=== PATIENT | male | born 1990 | race African-American/Black ===

== ENCOUNTER 2021-06-03 14:43 | Outpatient (REF) | payer OTHER, SELFPAY ==
[2021-06-04 04:45] LABS: HIV AB/AG Nonreactive (Nonreactive); HIV Num 1 0.04 S/CO (0.00-0.99)
== END 2021-06-03 14:44 | disposition home or self-care (01) ==
LOC: HO.HMGCLDS 14:43
PROVIDERS: PCP Physician Assistant; Visit Provider Physician Assistant
DX: Z11.4 Encounter for screening for human immunodeficiency virus [HIV] (principal)
CPT/HCPCS: 36415; 87389

== ENCOUNTER 2022-11-09 | Outpatient (REF) | payer OTHER, SELFPAY | END 2022-11-09 00:01 | LOC: HO.HOSX | PROVIDERS: Visit Provider Physician Assistant | DX: S86.892A Other injury of other muscle(s) and tendon(s) at lower leg level, left leg, initial encounter (principal); S86.891A Other injury of other muscle(s) and tendon(s) at lower leg level, right leg, initial encounter | CPT/HCPCS: 73590; 99202 ==

== ENCOUNTER 2022-11-26 16:00 | Outpatient (RCR) | payer OTHER, SELFPAY ==
--- NOTE | 2022-10-26 15:42 | MHC.PT.EP ---
[facility] [place] [facility] [place] [facility] [place] [facility] [address] Rod Centeno [address] [phone] F: [phone] F: [phone] F: [phone] F: [phone] Physical Therapy Plan of Care Date of Evaluation: Date of Surgery: n/a Diagnosis: B leg pain Assessment: Patient is a 32 year old male presenting to PT with complaints of pain in B lower legs. Pt reports onset of pain began 5 years ago due to fitness testing. He presents today with impairments in pain, gastroc tightness, hip strength, ankle DF ROM. 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 Pt expresses care home goal of reducing pain, and is motivated to work towards this in PT. Clinical presentation today is most consistent with signs and sx associated with B anterior sow pain with possible contribution from soft tissue restrictions and pt will benefit from skilled PT to address the following problems and impairments noted upon evaluation: pain, gastroc tightness, hip strength, ankle DF ROM. These problems limit the patient with the following functional activities: running, jumping. The prescribed treatment plan of care is medically necessary. Co-morbidities of none were identified and taken into considerations of plan of care. Pt was educated on HEP, role of PT, prognosis, POC. Frequency and Duration: The patient will be seen 2 x week x 4 weeks Short Term Goals: Pt will demonstrate improved gastroc muscle length for improved DF ROM by 5 degrees in 2 weeks. Pt will demonstrate improved MMT strength by 1/3 grade in 2 weeks for improved lumbopelvic stability. Shelter Goals: Pt will demonstrate DF ROM to neutral in 4 weeks for improved foot clearance with gait activities. Pt will demonstrate independence in home program for care home management of sx in 4 weeks. Treatment Plan: Modalities to reduce pain, spasms and effusion. Manual therapy to restore motion and function. Therapeutic exercise to improve strength and flexibility. Neuromuscular re-education for posture and balance. Therapeutic activities to return to functional activities of daily living. Electronically signed by: Alissa Sawyer, PT, DPT, ATC Please sign and return to therapist. Thank you for your referral.
--- NOTE | 2022-11-26 16:58 | MHC.PT.DC ---
[facility] [place] Office [place] [facility] [place] Office [address] Rod Centeno [address] [phone] F: [phone] F: [phone] F: [phone] F: [phone] Physical Therapy Discharge Report Diagnosis: B leg pain Date of Surgery: n/a Date of Evaluation: 10/26/22 Date of Discharge: 11/26/22 Treatments to Date: 9 Cancellations to Date: 0 No Shows to Date: 0 Discharge Status: Improved Function Independent with HEP Discharge Summary: 11/26/2022: Pt is no longer feeling pain. He is still limited in soft tissue restrictions from his gastrocs but this is improved. Discussed with pt that this pain is a long standing issue so it will take diligence with continuing with his HEP usp to really begin to feel significant changes/improvements and he is understanding of this. Advised pt if after a few months of continuing his HEP he continues to have pain then to return to his doctor. At this point max benefits of PT have been provided and skilled PT is no longer indicated at this time. Pt is in agreement with d/c at this time. Electronically signed by: Alissa Sawyer, PT, DPT, ATC Please sign and return to therapist. Thank you for your referral.
== END 2022-11-26 17:55 | disposition home or self-care (01) ==
LOC: HO.PTCHIC 16:00
PROVIDERS: PCP Physician Assistant; Visit Provider Physician Assistant
DX: S86.891A Other injury of other muscle(s) and tendon(s) at lower leg level, right leg, initial encounter (principal); S86.892A Other injury of other muscle(s) and tendon(s) at lower leg level, left leg, initial encounter
CPT/HCPCS: 97110; 97112; 97161; 97530

== ENCOUNTER 2022-11-27 13:35 | Outpatient (REF) | payer OTHER, SELFPAY ==
[2022-11-27 16:33] LABS: Hematocrit 44.3 % (42.0-52.0); Hemoglobin 14.4 g/dl (14.0-18.0); Mean Corpuscular HGB Conc 32.5 g/dl (31.0-36.0); Mean Corpuscular Volume 83.1 fL (80.0-98.0); Mean Platelet Volume 11.1 fL (9.4-12.4); Platelet Count 272 X10*3/uL (160-400); Red Blood Count 5.33 X10*6/uL (4.60-5.80); Red Cell Distribution Width 13.9 % (11.0-16.0); White Blood Count 6.5 X10*3/uL (4.8-10.8)
[2022-11-27 16:48] LABS: Alanine Aminotransferase 82 U/L (0-40); Albumin Level 4.6 g/dL (3.5-5.0); Alkaline Phosphatase 85 U/L (39-117); Anion Gap 14 (12-20); Aspartate Amino Transferase 50 U/L (5-37); Bilirubin Total 0.6 mg/dL (0.0-1.0); Blood Urea Nitrogen 16 mg/dL (9-16); Calcium 9.8 mg/dL (8.4-10.2); Carbon Dioxide 27 mmol/L (22-29); Chloride 103 mmol/L (96-108); Cholesterol 324 mg/dL; Estimated Glomerular Filt Rate > 60; Glucose Fasting 103 mg/dL (60-99); HDL Cholesterol 47 mg/dL; LDL Cholesterol Calculated 225 mg/dl; Potassium 4.4 mmol/L (3.3-5.1); Sodium 140 mmol/L (135-145); Total Protein 7.8 g/dL (6.5-8.0); Triglycerides 261 mg/dL
[2022-11-27 17:04] LABS: TSH reflex Free T4 1.95 uIU/mL (0.32-4.0)
[2022-11-30 09:26] LABS: HIV AB/AG Nonreactive (Nonreactive); HIV Num 1 0.08 S/CO (0.00-0.99)
== END 2022-11-27 13:36 | disposition home or self-care (01) ==
LOC: HO.HMGCLDS 13:35
PROVIDERS: PCP Physician Assistant; Visit Provider Physician Assistant
DX: Z13.220 Encounter for screening for lipoid disorders (principal); Z13.29 Encounter for screening for other suspected endocrine disorder; Z11.4 Encounter for screening for human immunodeficiency virus [HIV]
CPT/HCPCS: 36415; 80053; 80061; 84443; 85027; 87389

== ENCOUNTER 2023-03-29 13:47 | Outpatient (REF) | payer OTHER, SELFPAY ==
[2023-03-29 16:47] LABS: Alanine Aminotransferase 56 U/L (0-40); Albumin Level 4.3 g/dL (3.5-5.0); Alkaline Phosphatase 70 U/L (39-117); Aspartate Amino Transferase 43 U/L (5-37); Bilirubin Direct 0.1 mg/dL (0.0-0.5); Bilirubin Total 0.5 mg/dL (0.0-1.0); Cholesterol 333 mg/dL; HDL Cholesterol 43 mg/dL; LDL Cholesterol Calculated 247 mg/dl; Total Protein 7.3 g/dL (6.5-8.0); Triglycerides 216 mg/dL
== END 2023-03-29 13:48 | disposition home or self-care (01) ==
LOC: HO.HMGCLDS 13:47
PROVIDERS: PCP Physician Assistant; Visit Provider Physician Assistant
DX: R79.89 Other specified abnormal findings of blood chemistry (principal); E78.2 Mixed hyperlipidemia
CPT/HCPCS: 36415; 80061; 80076

== ENCOUNTER 2023-04-07 10:01 | Outpatient (REF) | payer OTHER, SELFPAY ==
--- NOTE | ~2023-04-07 | US_ITS ---
EXAMINATION: US ABDOMEN LIMITED CLINICAL INFORMATION: Elevated LFTs. COMPARISON: None available. TECHNIQUE: Real-time imaging of the right upper quadrant abdominal viscera. FINDINGS: PANCREAS: Normal. LIVER: The liver is normal in size. The liver contour is normal. There is diffuse increased liver parenchymal echogenicity. No focal hepatic lesion. There is no intrahepatic biliary duct dilatation seen. GALLBLADDER: Normal. The gallbladder is physiologically distended without evidence of stones, sludge, polyps, wall thickening or pericholecystic fluid. COMMON BILE DUCT: Normal in caliber measuring 0.5 cm in diameter. RIGHT KIDNEY: Normal. No hydronephrosis. No renal calculi or focal parenchymal lesions. The kidney measures 11.5 cm in maximum dimension. FREE FLUID: None. US/US abdomen limited IMPRESSION: There is generalized increase in hepatic echotexture, consistent with fatty infiltration or hepatocellular disease. Please correlate clinically. No focal hepatic mass or intrahepatic biliary dilatation is seen.
== END 2023-04-07 10:02 | disposition home or self-care (01) ==
LOC: HO.HMGCX 10:01
PROVIDERS: PCP Physician Assistant; Visit Provider Physician Assistant
DX: R79.89 Other specified abnormal findings of blood chemistry (principal)
CPT/HCPCS: 76705

== ENCOUNTER 2023-06-25 14:04 | Outpatient (AMB) | payer OTHER, SELFPAY ==
[2023-06-25 14:08] VITALS: BP 136/89; PULSE 59; BMI 29.3
--- NOTE | 2023-06-25 14:08 | MHC.OFFVIS ---
Intake Vital Signs 06/25/23 14:08 Height 5 ft 9 in Weight 198 lb 6.656 oz BMI 29.3 BP 136/89 Blood Pressure Location Rt brachial Position Sitting Pulse 59 Intake Visit Reasons: elevated LFTs Intake Note: Patient presents to in office visit today as a new patient for elevated LFTs. CC: Denies having any GI symptoms today. Allergies No Known Allergies Allergy (Verified 06/25/23 14:12) HPI elevated LFTs HPI Details 33-year-old male here for initial evaluation of transaminitis. He is referred by Dallas Ibarra of [facility] primary care. PMX Obesity Major depressive disorder Transaminitis Allergic rhinitis High cholesterol Pes planus * SURGICAL HISTORY [place] teeth removal. * ALLERGIES: NKDA * Circular LABS: Laboratory Tests 11/27/22 11/27/22 11/27/22 13:41 13:41 13:41 WBC 6.5 Hgb 14.4 Hct 44.3 Plt Count 272 Estimated GFR > 60 Total Bilirubin AST ALT Alkaline Phosphata se TSH 1.95 HIV 1&2 Ab/P24 Ag 4thGn Nonreactive 03/29/23 14:03 WBC Hgb Hct Plt Count Estimated GFR Total Bilirubin 0.5 AST 43 H ALT 56 H Alkaline Phosphata se 70 TSH HIV 1&2 Ab/P24 Ag 4thGn US ABD 04/12/23 FINDINGS: PANCREAS: Normal. LIVER: The liver is normal in size. The liver contour is normal. There is diffuse increased liver parenchymal echogenicity. No focal hepatic lesion. There is no intrahepatic biliary duct dilatation seen. GALLBLADDER: Normal. The gallbladder is physiologically distended without evidence of stones, sludge, polyps, wall thickening or pericholecystic fluid. COMMON BILE DUCT: Normal in caliber measuring 0.5 cm in diameter. RIGHT KIDNEY: Normal. No hydronephrosis. No renal calculi or focal parenchymal lesions. The kidney measures 11.5 cm in maximum dimension. FREE FLUID: None. US/US abdomen limited IMPRESSION: There is generalized increase in hepatic echotexture, consistent with fatty infiltration or hepatocellular disease. Please correlate clinically. No focal hepatic mass or intrahepatic biliary dilatation is seen. ? TODAY'S VISIT No known FHX of liver disease. He feels entirely well, this was discovered by routine testing. He only rarely drinks ETOH. Recently started on atorvastatin for high cholesterol. 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 I also explained we will be testing for any reversible causes such as autoimmune liver disease infections etc.. ROV 2 weeks. PFSH Surgical History [place] teeth removed Family History Mother HTN (hypertension) Father No problems noted. 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 Current occupational exposures/hazards: No Cognitive needs: No Hearing needs: No Vision needs: No Review of Systems Const Denies fatigue, Denies fever(s), Denies night sweats, Denies poor appetite and Denies weight loss ENT Reports Normal hearing present, Denies dental pain, Denies dysphagia, Denies hearing loss, Denies mouth pain, Denies odynophagia, Denies throat swelling, Denies tongue swelling and Reports other (Dentition adequate) Card Reports no additional complaints Resp Reports no additional complaints GI Denies abdominal pain, Denies melena, Denies bloating, Denies hematochezia, Denies constipation, Denies GI cramping, Denies dysphagia, Denies excessive flatus, Denies early satiety, Denies heartburn, Denies diarrhea, Denies nausea, Denies odynophagia, Denies vomiting and Denies hematemesis Skin/Breast Denies pruritus, Denies lesions, Denies rash and Denies jaundice Neuro Reports Normal hearing present and Denies Abnormal speech present Endo Denies fatigue Aller/Immun Denies throat swelling and Denies tongue swelling Physical Exam Vital Signs: Last Vital Signs Pulse 59 06/25/23 14:08 BP 136/89 06/25/23 14:08 BMI result Body Mass Index 29.3 Const General: cooperative, no acute distress, well developed and well groomed Nutritional Appearance: well nourished and obese centrally obese Orientation/consciousness: oriented to person, oriented to place and oriented to time Limitations: language barrier HEENT Head: Yes normocephalic and Yes atraumatic Eyes General: appearance normal, both eyes and all related structures Pupils: Equal, round and reactive pupils present Neck Neck: Yes normal visual inspection and Yes no lymphadenopathy Thyroid: Thyroid normal Resp Effort & Inspection: normal respiratory effort and able to speak in complete sentences Auscultation: clear to auscultation bilaterally Cardio Rate: regular rate Rhythm: regular rhythm Heart sounds: Normal, physiologic split S2 sound present Peripheral pulses: radial pulses present and posterior tibial pulses present GI Inspection: No distended, No Abdominal panniculus present and Yes obesity Palpation (GI): Soft to palpation, nontender, no guarding, not rigid and No hepatosplenomegaly present Percussion: Yes normal to percussion Auscultation: normal bowel sounds Rectal Exam - Male: Yes deferred Skin General skin exam: no rashes or lesions noted, turgor normal, skin not dry, no jaundice, No spider nevi and no striae Rashes: no rashes Nails: normal Neuro General: oriented to person, oriented to place and oriented to time Cranial nerves: Yes Equal, round and reactive pupils present and Yes Normal hearing present Speech: No Abnormal speech present Extrem General: Yes normal to inspection, No clubbing, No cyanosis and No edema Psych Appearance: grossly normal and well kempt Mental Status: mental status grossly normal Speech and movement: Normal speech and movement present Affect: normal affect Attitude: cooperative Thought process: Normal thought process present and not confabulating Thought content: Normal thought content present Insight: Limited insight present (Psych) Judgement: Limited judgement present (Psych) Assessment & Plan Assessment & Plan (1) Elevated LFTs: Code(s): R79.89 - Other specified abnormal findings of blood chemistry Plan: No known FHX of liver disease. He feels entirely well, this was discovered by routine testing. He only rarely drinks ETOH. Recently started on atorvastatin for high cholesterol. 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 I also explained we will be testing for any reversible causes such as autoimmune liver disease infections etc.. ROV 2 weeks. Orders: Orders Alpha Fetoprotein Today - Other specified abnormal findings of blood chemistry Ceruloplasmin Today - Other specified abnormal findings of blood chemistry Ferritin Today - Other specified abnormal findings of blood chemistry Gamma Glutamyl Transpeptidase Today - Other specified abnormal findings of blood chemistry SUSAN Reflex Titer and Pattern Today - Other specified abnormal findings of blood chemistry Mitochondrial Antibody Today - Other specified abnormal findings of blood chemistry Smooth Muscle Antibody Today - Other specified abnormal findings of blood chemistry Transglutaminase IgA Today - Other specified abnormal findings of blood chemistry Transglutaminase Ab IgG Today - Other specified abnormal findings of blood chemistry Hepatitis A,B,C Profile Today - Other specified abnormal findings of blood chemistry Coding Level of Care Code New Pt Level 3 (34994) Diagnoses Elevated LFTs
== END 2023-06-25 14:25 | disposition home or self-care (01) ==
PROVIDERS: PCP Physician Assistant; Visit Provider Nurse Practitioner
DX: R79.89 Other specified abnormal findings of blood chemistry (principal)
CPT/HCPCS: 99203

== ENCOUNTER → 2023-06-25 14:04 | Outpatient (BNVA) | payer OTHER, SELFPAY | PROVIDERS: PCP Physician Assistant; Visit Provider Nurse Practitioner | DX: R79.89 Other specified abnormal findings of blood chemistry (principal) | CPT/HCPCS: 99202 ==

== ENCOUNTER 2023-06-30 13:51 | Outpatient (REF) | payer OTHER, SELFPAY ==
[2023-06-30 17:17] LABS: Gamma Glutamyl Transpeptidase 162 U/L (11-51)
[2023-06-30 17:21] LABS: Ferritin 216 ng/mL (20-250)
[2023-07-01 04:16] LABS: HBS Num1 36.39 mIU/mL (0-7.99); HBc Num1 0.05 S/CO (0.00-0.79); HBsAGNum1 0.33 S/CO (0.00-0.99); Hepatitis A Antibody IgM 0.18 Index (0-0.79); Hepatitis B Core Antibody Nonreactive (Nonreactive); Hepatitis B Surface Antigen Negative (Negative); ~HepC Num1 0.05 S/CO (0.00-0.79); ~Hepatitis A Antibody IgM Nonreactive (Nonreactive); ~Hepatitis B Surface Antibody REACTIVE (Nonreactive); ~Hepatitis C Antibody Nonreactive (Nonreactive)
[2023-07-02 13:24] LABS: Alpha Fetoprotein 3.3 ng/mL (<6.1)
[2023-07-02 14:28] LABS: Ceruloplasmin 27 mg/dL (18-36)
[2023-07-02 20:09] LABS: Transglutaminase Ab IgG <1.0 U/mL; Transglutaminase IgA <1.0 U/mL
[2023-07-08 15:54] LABS: Mitochondrial Antibodies NEGATIVE (NEGATIVE)
[2023-07-08 17:28] LABS: Anti Nuclear Antibody Screen NEGATIVE (NEGATIVE)
[2023-07-08 23:43] LABS: Smooth Muscle Antibody <20 U (<20)
== END 2023-06-30 13:52 | disposition home or self-care (01) ==
LOC: HO.HMGCLDS 13:51
PROVIDERS: PCP Physician Assistant; Visit Provider Nurse Practitioner
DX: R79.89 Other specified abnormal findings of blood chemistry (principal)
CPT/HCPCS: 36415; 82105; 82390; 82728; 82977; 86015; 86038; 86255; 86256; 86364; 86704; 86706; 86709; 86803; 87340

== ENCOUNTER 2023-07-01 14:28 | Outpatient (AMB) | payer OTHER, SELFPAY ==
[2023-07-01 14:42] VITALS: BP 142/80; PULSE 72; O2SAT 96; BMI 30.5
--- NOTE | 2023-07-01 14:42 | A.OFFPC_ITS ---
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 Accompanied by: Self / Same As Patient Allergies No Known Allergies Allergy (Verified 07/01/23 15:18) Medication List - Last Reconciled 07/01/23 by Dallas Ibarra PA-C atorvastatin 20 mg PO DAILY 30 days cetirizine 10 mg PO DAILY trazodone 100 mg PO BEDTIME Tobacco use date assessed: 11/24/22 Dental Screening Dental Screen Date: 07/01/23 Did you have a dental visit in the last 12 months?: Yes Did you have a dental problem in the last 6 months where you did not have access to dental care?: No Was dental information given to patient?: Patient has dentist HPI f/u HLD HPI Details Patient is a 33-year-old male here today for a follow-up visit. Patient has a past medical history significant for hyperlipidemia, pes planus, major depressive disorder. . Elevated liver enzymes: Has been referred to Gastroenterology was sent for testing. 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 Ultrasound of March 2023 showing evidence of fatty liver disease. .. Hyperlipidemia: Has been started on statin therapy as of March of 2023, he denies any side effects from statin therapy. Advised to get fasting lipids done for traveling out of [facility] for duties. Laboratory Tests 11/27/22 11/27/22 03/29/23 13:41 13:41 14:03 RBC 5.33 Fasting Glucose 103 H AST 50 H 43 H GGT ALT 82 H 56 H Cholesterol 324 333 LDL Cholesterol, C alc 225 247 06/30/23 14:10 RBC Fasting Glucose AST GGT 162 H ALT Cholesterol LDL Cholesterol, C alc PFSH Surgical History [place] teeth removed Family History Mother HTN (hypertension) Father No problems noted. 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 Jordan Donald, Zofia Phan, Hira Gonzalez and colleagues, with an educational luna from [employer]. Review of Systems Const Denies headache(s) Eyes Denies loss of vision ENT Denies vertigo, Denies dizziness, Denies headache(s) and Denies sore throat Card Denies chest pain, Denies leg edema and Denies lightheadedness Resp Denies cough, Denies hemoptysis and Denies wheezing GI Denies abdominal pain, Denies melena, Denies constipation, Denies diarrhea and Denies vomiting Denies dysuria, Denies urinary frequency and Denies urinary urgency Musc Denies arthralgias, Denies joint swelling, Denies numbness and Denies tingling Neuro Denies Abnormal speech present, Denies behavioral changes, Denies vertigo, Denies dizziness, Denies headache(s), Denies loss of vision, Denies memory loss, Denies numbness and Denies tingling Psych Denies anxiety, Denies behavioral changes, Denies depression, Denies memory loss and Denies panic attacks Sergey/Lymph Denies easy bleeding and Denies easy bruising Aller/Immun Denies wheezing Physical exam (Primary Care) Vital Signs: Last Vital Signs Pulse 72 07/01/23 14:42 BP 136/90 H 07/01/23 15:24 Pulse Ox 96 07/01/23 14:42 BMI result Body Mass Index 30.5 Tobacco/Smoking Status: Tobacco use Status Tobacco use date assessed 11/24/22 07/01/23 14:46 Patient Tobacco Use Status Never used Tobacco 07/01/23 14:46 e-Cigarette/Vaping Use Never Used 07/01/23 14:46 Thrive Assessment: Date of Thrive Assessment Date Thrive assessed 11/24/22 07/01/23 14:46 Const General: healthy appearing, no acute distress, alert and awake Nutritional Appearance: well nourished Orientation/consciousness: oriented to person, oriented to place and oriented to time HENMT Ears: TM's normal bilaterally General nose exam: Normal nasal mucous membranes and turbinates present Eyes Conjunctivae: conjunctivae normal Sclerae: sclerae normal Pupils: Equal, round and reactive pupils present Neck Neck: Yes no lymphadenopathy and Yes no JVD Thyroid: Thyroid normal Carotids: no bruits Resp Effort & Inspection: normal respiratory effort and not tachypneic Auscultation: no crackles, no rales, no rhonchi and no wheezes Cardio Rate: regular rate Rhythm: regular rhythm Heart sounds: no murmurs and normal S1 and S2 GI Palpation (GI): Soft to palpation, nontender, no hepatomegaly and no splenomegaly Auscultation: normal bowel sounds Skin General skin exam: no rashes or lesions noted and dry skin Neuro General: oriented to person, oriented to place and oriented to time Cranial nerves: Yes Equal, round and reactive pupils present Speech: No Abnormal speech present Gait exam (Neuro): Normal gait present Motor exam (neuro): no tremor noted Extrem Right upper extremity: full ROM Left upper extremity: full ROM Right lower extremity: full ROM; no edema Left lower extremity: full ROM; no edema Psych Mental Status: mental status grossly normal Speech and movement: Normal speech and movement present Affect: normal affect Attitude: cooperative Thought process: Normal thought process present Assessment and Plan Assessment & Plan (1) Nonalcoholic fatty liver: Code(s): K76.0 - Fatty (change of) liver, not elsewhere classified Plan: Patient has followed up with general maintenance mechanic and has been sent for further testing on his elevated liver enzymes. Presumptive diagnosis of familial fatty liver disease. (2) HLD (hyperlipidemia): Code(s): E78.5 - Hyperlipidemia, unspecified Qualifiers: Hyperlipidemia type: mixed hyperlipidemia Qualified Code(s): E78.2 - Mixed hyperlipidemia Plan: Patient continues on statin therapy without any side effect. Advised to get fasting lipids done before he leaves town. Goal LDL to be below 190 (3) Obese: Code(s): E66.9 - Obesity, unspecified Qualifiers: Body mass index: BMI 30.0-30.9 Obesity classification: adult class 1 (BMI 30 - 34.9) Obesity type: due to excess calories Serious obesity comorbidity presence: without serious comorbidity Qualified Code(s): E66.09 - Other obesity due to excess calories; Z68.30 - Body mass index [BMI] 30.0-30.9, adult Plan: Patient does understand his BMI is slightly above 30 will work on being more physically active and adapting to better eating habits to reduce his weight. Orders: Orders Lipid Panel 07/01/23 E78.2 - Mixed hyperlipidemia Medications: Refilled cetirizine 10 mg PO DAILY 90 tabs 2RF J30.89 - Other allergic rhinitis Coding Level of Care Code Est Pt Level 4 (12347) Diagnoses Nonalcoholic fatty liver K76.0 HLD (hyperlipidemia) E78.2 Hyperlipidemia type: mixed hyperlipidemia Obese E66.09; Z68.30 Body mass index: BMI 30.0-30.9 Obesity classification: adult class 1 (BMI 30 - 34.9) Obesity type: due to excess calories Serious obesity comorbidity presence: without serious comorbidity
[2023-07-01 15:24] VITALS: BP 136/90
== END 2023-07-01 15:41 | disposition home or self-care (01) ==
PROVIDERS: PCP Physician Assistant; Visit Provider Physician Assistant
DX: K76.0 Fatty (change of) liver, not elsewhere classified (principal); E78.2 Mixed hyperlipidemia; E66.09 Other obesity due to excess calories; Z68.30 Body mass index [BMI] 30.0-30.9, adult
CPT/HCPCS: 99214

== ENCOUNTER 2023-08-24 13:26 | Outpatient (AMB) | payer OTHER, SELFPAY ==
[2023-08-24 13:31] VITALS: BP 140/79; PULSE 78; BMI 31.6
--- NOTE | 2023-08-24 13:31 | A.OFFVIS_ITS ---
Intake Vital Signs 08/24/23 13:31 Height 5 ft 9 in Weight 213 lb 13.574 oz BMI 31.6 BP 140/79 H Blood Pressure Location Rt brachial Position Sitting Pulse 78 Intake Visit Reasons: 2 week fu Intake Note: Patient presents to in office visit today as a new patient for elevated LFTs and labs. CC: Patient reports having left shoulder pain with heavy lifting. Denies having any GI concerns or symptoms today. Allergies No Known Allergies Allergy (Verified 08/24/23 13:34) HPI 2 week fu HPI Details Assessment & Plan (1) Elevated LFTs: ?Code(s): R79.89 - Other specified abnormal findings of blood chemistry ?Plan: No known FHX of liver disease. He feels entirely well, this was discovered by routine testing. He only rarely drinks ETOH. Recently started on atorvastatin for high cholesterol. I explained to him that this is likely inherited [place] but I will give him more about that once we have confirmed the diagnosis.? I also explained we will be testing for any reversible causes such as autoimmune liver disease infections etc.. ROV 2 weeks. ? ? ? Orders: Orders Alpha Fetoprotein Today - Other spe cified abnormal fi ndings of blood ch emistry ? Ceruloplasmin Today - Other spe cified abnormal fi ndings of blood ch emistry ? Ferritin Today - Other spe cified abnormal fi ndings of blood ch emistry ? Gamma Glutamyl Tra nspeptidase Today R7 - Other spe cified abnormal fi ndings of blood ch emistry ? SUSAN Reflex Titer a nd Pattern Today - Other spe cified abnormal fi ndings of blood ch emistry ? Mitochondrial Anti body Today - Other spe cified abnormal fi ndings of blood ch emistry ? Smooth Muscle Anti body Today - Other spe cified abnormal fi ndings of blood ch emistry ? Transglutaminase I gA Today - Other spe cified abnormal fi ndings of blood ch emistry ? Transglutaminase A b IgG Today - Other spe cified abnormal fi ndings of blood ch emistry ? Hepatitis A,B,C Pr ofile Today - Other spe cified abnormal fi ndings of blood ch emistry ? LABS: Laboratory Tests 11/27/22 11/27/22 03/29/23 13:41 13:41 14:03 Plt Count 272 Ferritin Total Bilirubin 0.5 Direct Bilirubin 0.1 GGT AST ALT Alkaline Phosphata se Ceruloplasmin Alpha Fetoprotein SUSAN Screen Anti-Mitochondrial Ab Anti-Smooth Muscle Ab Hepatitis A IgM Ab Hep Bs Antigen Hep Bs Antibody Hep B Core Total A b Hepatitis C Ab (EI A) HIV 1&2 Ab/P24 Ag 4thGn Nonreactive 03/29/23 06/30/23 06/30/23 14:03 14:10 14:10 Plt Count Ferritin 216 Total Bilirubin Direct Bilirubin GGT 162 H AST 43 H ALT 56 H Alkaline Phosphata se 70 Ceruloplasmin Alpha Fetoprotein SUSAN Screen Anti-Mitochondrial Ab Anti-Smooth Muscle Ab Hepatitis A IgM Ab Hep Bs Antigen Hep Bs Antibody Hep B Core Total A b Hepatitis C Ab (EI A) HIV 1&2 Ab/P24 Ag 4thGn 06/30/23 06/30/23 14:10 14:10 Plt Count Ferritin Total Bilirubin Direct Bilirubin GGT AST ALT Alkaline Phosphata se Ceruloplasmin 27 Alpha Fetoprotein 3.3 SUSAN Screen NEGATIVE Anti-Mitochondrial Ab NEGATIVE Anti-Smooth Muscle Ab <20 Hepatitis A IgM Ab Nonreactive Hep Bs Antigen Negative Hep Bs Antibody REACTIVE Hep B Core Total A b Nonreactive Hepatitis C Ab (EI A) Nonreactive HIV 1&2 Ab/P24 Ag 4thGn ULTRASOUND OF THE ABDOMEN FINDINGS: PANCREAS: Normal. LIVER: The liver is normal in size. The liver contour is normal. There is diffuse increased liver parenchymal echogenicity. No focal hepatic lesion. There is no intrahepatic biliary duct dilatation seen. GALLBLADDER: Normal. The gallbladder is physiologically distended without evidence of stones, sludge, polyps, wall thickening or pericholecystic fluid. COMMON BILE DUCT: Normal in caliber measuring 0.5 cm in diameter. RIGHT KIDNEY: Normal. No hydronephrosis. No renal calculi or focal parenchymal lesions. The kidney measures 11.5 cm in maximum dimension. FREE FLUID: None. US/US abdomen limited IMPRESSION: There is generalized increase in hepatic echotexture, consistent with fatty infiltration or hepatocellular disease. Please correlate clinically. No focal hepatic mass or intrahepatic biliary dilatation is seen. TODAY'S VISIT . 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 He was counseled to control his weight avoid alcohol except for occasional use an should he become diabetic control his sugars.. May have a slight bump also from his statin but the benefits outweigh the risk with this case. I did advise him that his transaminases should be monitored at 6 month intervals and if they become greater than 3 times baseline he should be referred to Gastroenterology. At this time it does not appear that he has any other contributing factors such as autoimmune liver disease etc.. He tells me that [place] is being [place] so he will be following with our service. I wish him the best and thank him for his service. [facility] Surgical History [place] teeth removed Family History Mother HTN (hypertension) Father No problems noted. 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 Current occupational exposures/hazards: No Cognitive needs: No Hearing needs: No Vision needs: No Review of Systems Const Denies fatigue, Denies fever(s), Denies night sweats, Denies poor appetite and Denies weight loss ENT Reports Normal hearing present, Denies dental pain, Denies dysphagia, Denies hearing loss, Denies mouth pain, Denies odynophagia, Denies throat swelling, Denies tongue swelling and Reports other (Dentition adequate) Card Reports no additional complaints Resp Reports no additional complaints GI Denies abdominal pain, Denies melena, Denies bloating, Denies hematochezia, Denies constipation, Denies GI cramping, Denies dysphagia, Denies excessive flatus, Denies early satiety, Denies heartburn, Denies diarrhea, Denies nausea, Denies odynophagia, Denies vomiting and Denies hematemesis Skin/Breast Denies pruritus, Denies lesions, Denies rash and Denies jaundice Neuro Reports Normal hearing present and Denies Abnormal speech present Endo Denies fatigue Aller/Immun Denies throat swelling and Denies tongue swelling Physical Exam Vital Signs: Last Vital Signs Pulse 78 08/24/23 13:31 BP 140/79 H 08/24/23 13:31 BMI result Body Mass Index 31.6 Const General: cooperative, no acute distress, well developed and well groomed Nutritional Appearance: well nourished and overweight Orientation/consciousness: oriented to person, oriented to place and oriented to time Limitations: No language barrier HEENT Head: Yes normocephalic and Yes atraumatic Eyes General: appearance normal, both eyes and all related structures Pupils: Equal, round and reactive pupils present Neck Neck: Yes normal visual inspection and Yes no lymphadenopathy Thyroid: Thyroid normal Resp Effort & Inspection: normal respiratory effort and able to speak in complete sentences Auscultation: clear to auscultation bilaterally Cardio Rate: regular rate Rhythm: regular rhythm Heart sounds: Normal, physiologic split S2 sound present Peripheral pulses: radial pulses present and posterior tibial pulses present GI Inspection: No distended, No Abdominal panniculus present and Yes obesity Palpation (GI): Soft to palpation, nontender, no guarding, not rigid and No hepatosplenomegaly present Percussion: Yes normal to percussion Auscultation: normal bowel sounds Rectal Exam - Male: Yes deferred Skin General skin exam: no rashes or lesions noted, turgor normal, skin not dry, no jaundice, No spider nevi and no striae Rashes: no rashes Nails: normal Neuro General: oriented to person, oriented to place and oriented to time Cranial nerves: Yes Equal, round and reactive pupils present and Yes Normal hearing present Speech: No Abnormal speech present Extrem General: Yes normal to inspection, No clubbing, No cyanosis and No edema Psych Appearance: grossly normal and well kempt Mental Status: mental status grossly normal Speech and movement: Normal speech and movement present Affect: normal affect Attitude: cooperative Thought process: Normal thought process present and not confabulating Thought content: Normal thought content present Insight: Good insight present (Psych) Judgement: Good judgement present (Psych) Results Reviewed Results Reviewed: Laboratory Tests 11/27/22 11/27/22 03/29/23 13:41 13:41 14:03 Plt Count 272 Ferritin Total Bilirubin 0.5 Direct Bilirubin 0.1 GGT AST ALT Alkaline Phosphatase Ceruloplasmin Alpha Fetoprotein SUSAN Screen Anti-Mitochondrial Ab Anti-Smooth Muscle Ab Hepatitis A IgM Ab Hep Bs Antigen Hep Bs Antibody Hep B Core Total Ab Hepatitis C Ab (EIA) HIV 1&2 Ab/P24 Ag 4thGn Nonreactive 03/29/23 06/30/23 06/30/23 14:03 14:10 14:10 Plt Count Ferritin 216 Total Bilirubin Direct Bilirubin GGT 162 H AST 43 H ALT 56 H Alkaline Phosphatase 70 Ceruloplasmin Alpha Fetoprotein SUSAN Screen Anti-Mitochondrial Ab Anti-Smooth Muscle Ab Hepatitis A IgM Ab Hep Bs Antigen Hep Bs Antibody Hep B Core Total Ab Hepatitis C Ab (EIA) HIV 1&2 Ab/P24 Ag 4thGn 06/30/23 06/30/23 14:10 14:10 Plt Count Ferritin Total Bilirubin Direct Bilirubin GGT AST ALT Alkaline Phosphatase Ceruloplasmin 27 Alpha Fetoprotein 3.3 SUSAN Screen NEGATIVE Anti-Mitochondrial Ab NEGATIVE Anti-Smooth Muscle Ab <20 Hepatitis A IgM Ab Nonreactive Hep Bs Antigen A Negative Hep Bs Antibody REACTIVE Hep B Core Total Ab Nonreactive Hepatitis C Ab (EIA) Nonreactive HIV 1&2 Ab/P24 Ag 4thGn ULTRASOUND OF THE ABDOMEN FINDINGS: PANCREAS: Normal. LIVER: The liver is normal in size. The liver contour is normal. There is diffuse increased liver parenchymal echogenicity. No focal hepatic lesion. There is no intrahepatic biliary duct dilatation seen. GALLBLADDER: Normal. The gallbladder is physiologically distended without evidence of stones, sludge, polyps, wall thickening or pericholecystic fluid. COMMON BILE DUCT: Normal in caliber measuring 0.5 cm in diameter. RIGHT KIDNEY: Normal. No hydronephrosis. No renal calculi or focal parenchymal lesions. The kidney measures 11.5 cm in maximum dimension. FREE FLUID: None. US/US abdomen limited IMPRESSION: There is generalized increase in hepatic echotexture, consistent with fatty infiltration or hepatocellular disease. Please correlate clinically. No focal hepatic mass or intrahepatic biliary dilatation is seen. Assessment & Plan Assessment & Plan (1) Nonalcoholic fatty liver: Comment: BASELINE LABS 11/27/2300/04/2305 13:4113:[id number] Plt Count 272 Ferritin Total Bilirubin 0.5 Direct Bilirubin 0.1 GGT AST ALT Alkaline Phosphatase Ceruloplasmin Alpha Fetoprotein SUSAN Screen Anti-Mitochondrial Ab Anti-Smooth Muscle Ab Hepatitis A IgM Ab Hep Bs Antigen Hep Bs Antibody Hep B Core Total Ab Hepatitis C Ab (EIA) HIV 1&2 Ab/P24 Ag 4thGn Nonreactive 03/29/230807/2308 14:0314:1014:10 Plt Count Ferritin 216 . GGT 162 H AST 43 H ALT 56 H Alkaline Phosphatase 70 Ceruloplasmin 27 Alpha Fetoprotein 3.3 SUSAN Screen NEGATIVE Anti-Mitochondrial Ab NEGATIVE Anti-Smooth Muscle Ab <20 Hepatitis A IgM Ab Nonreactive Hep Bs Antigen Negative Hep Bs Antibody REACTIVE Hep B Core Total Ab Nonreactive Hepatitis C Ab (EIA) Nonreactive HIV 1&2 Ab/P24 Ag 4thGn ULTRASOUND OF THE ABDOMEN FINDINGS: PANCREAS: Normal. LIVER: The liver is normal in size. The liver contour is normal. There is diffuse increased liver parenchymal echogenicity. No focal hepatic lesion. There is no intrahepatic biliary duct dilatation seen. GALLBLADDER: Normal. The gallbladder is physiologically distended without evidence of stones, sludge, polyps, wall thickening or pericholecystic fluid. COMMON BILE DUCT: Normal in caliber measuring 0.5 cm in diameter. RIGHT KIDNEY: Normal. No hydronephrosis. No renal calculi or focal parenchymal lesions. The kidney measures 11.5 cm in maximum dimension. FREE FLUID: None. US/US abdomen limited IMPRESSION: There is generalized increase in hepatic echotexture, consistent with fatty infiltration or hepatocellular disease. Please correlate clinically. No focal hepatic mass or intrahepatic biliary dilatation is seen. 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 He was counseled to control his weight avoid alcohol except for occasional use an should he become diabetic control his sugars.. May have a slight bump also from his statin but the benefits outweigh the risk with this case. I did advise him that his transaminases should be monitored at 6 month intervals and if they become greater than 3 times baseline he should be referred to Gastroenterology. At this time it does not appear that he has any other contributing factors such as autoimmune liver disease etc.. He tells me that he is being [place] a [place] so he will be following with our service. I wish him the best and thank him for his service. (2) Obese: Code(s): E66.9 - Obesity, unspecified Qualifiers: Body mass index: BMI 30.0-30.9 Obesity classification: adult class 1 (BMI 30 - 34.9) Obesity type: due to excess calories Serious obesity comorbidity presence: without serious comorbidity Qualified Code(s): E66.09 - Other obesity due to excess calories; Z68.30 - Body mass index [BMI] 30.0-30.9, adult Coding Level of Care Code Est Pt Level 3 (89351) Diagnoses Nonalcoholic fatty liver K76.0 Class 1 obesity due to excess calories without serious comorbidity with body mass index (BMI) of 30.0 to 30.9 in adult E66.09; Z68.30 Body mass index: BMI 30.0-30.9 Obesity classification: adult class 1 (BMI 30 - 34.9) Obesity type: due to excess calories Serious obesity comorbidity presence: without serious comorbidity
== END 2023-08-24 14:20 | disposition home or self-care (01) ==
PROVIDERS: PCP Physician Assistant; Visit Provider Nurse Practitioner
DX: K76.0 Fatty (change of) liver, not elsewhere classified (principal); E66.09 Other obesity due to excess calories; Z68.30 Body mass index [BMI] 30.0-30.9, adult
CPT/HCPCS: 99213

== ENCOUNTER → 2023-08-24 13:26 | Outpatient (BNVA) | payer OTHER, SELFPAY | PROVIDERS: PCP Physician Assistant; Visit Provider Nurse Practitioner | DX: K76.0 Fatty (change of) liver, not elsewhere classified (principal); E66.09 Other obesity due to excess calories; Z68.31 Body mass index [BMI] 31.0-31.9, adult | CPT/HCPCS: 99212 ==